=== PATIENT | male | born 1985 | race Caucasian/White ===

== ENCOUNTER 2017-01-10 08:20 | Emergency (ER) | payer OTHER ==
[~2017-01-10] VITALS: Ht 175.3 cm; Wt 79.5 kg
[2017-01-10] MEDS ORDERED: MOTRIN800 MG PO (09:21)
[2017-01-10 09:41] VITALS: BP 150/86
== END 2017-01-10 10:09 | disposition home or self-care (01) ==
LOC: EME 08:20
PROC: 3E0234Z Introduction of Serum, Toxoid and Vaccine into Muscle, Percutaneous Approach (ICD-10-PCS; principal; 2017-01-10)
DX: T22.192A Burn of first degree of multiple sites of left shoulder and upper limb, except wrist and hand, initial encounter (principal); W22.10XA Striking against or struck by unspecified automobile airbag, initial encounter; V49.40XA Driver injured in collision with unspecified motor vehicles in traffic accident, initial encounter; Y92.410 Unspecified street and highway as the place of occurrence of the external cause; Y99.0 Civilian activity done for income or pay; Z23 Encounter for immunization
CPT/HCPCS: 99281; 99284